=== PATIENT | male | born 1945 ===

== ENCOUNTER 2020-06-27 05:56 | Emergency (ER) | payer OTHER ==
--- OUTSIDE RECORDS SUMMARY | 2020-06-27 05:58 | XMS REPORT | Clinical Summary ---
:[address] [facility] Address [address] [place] [address] Care Team Providers Name Role Phone Pcp, No Primary Care Provider Unavailable Allergies Active Allergy Reactions Severity Noted Date Comments Morphine 01/04/2017 Medications Medication Sig Dispensed Refills Start Date End Date Status metoprolol Take 25 mg 0 Active (LOPRESSOR) 50 MG by mouth 2 tablet (two) times daily Take one-half tablet. doxazosin (CARDURA) 8 Take 8 mg by 0 Active MG tablet mouth nightly. mag/aluminum/sod Take by 0 Act amadou bicarb/alginc mouth. (GAVISCON ORAL) calcium carbonate Take by 0 Ac tive (TUMS ORAL) mouth. aspirin 81 MG EC Take 81 mg 0 Ac tive tablet by mouth daily. cholecalciferol, Take 5,000 0 Ac tive vitamin D3, 5,000 Units by unit Tab mouth daily. folic acid/vit B Take by 0 Act amadou complex and C mouth daily. (DIALYVITE ORAL) clopidogrel (PLAVIX) Take 1 90 tablet 0 08/29/2019 08/28/20 20 Active 75 mg tablet tablet (75 mg total) by mouth daily. atorvastatin Take 1 90 tablet 0 08/29/2019 08/28/2020 Activ e (LIPITOR) 40 MG tablet (40 tablet mg total) by mouth daily. losartan (COZAAR) 100 Take 100 mg 0 2018 Discontinued MG tablet by mouth daily. FA-vit Take 1 0 08/28/2019 Discontin ued Bcomp&G-cffochmw-lorr tablet by (FOLIC ACID-VITAMIN B mouth daily. COMPLEX-VITAMIN A-XZYTVWOC-YRIH) 3-70-15 mg-mcg-mg Tab clopidogrel (PLAVIX) Take 75 mg 0 08/28/20 19 Discontinued 75 mg tablet by mouth daily. cyanocobalamin 1000 Take 1,000 0 9 Discontinued MCG tablet mcg by mouth daily. isosorbide dinitrate Take 30 mg 0 08/29/20 19 Discontinued (ISORDIL) 30 MG by mouth tablet daily . amLODIPine (NORVASC) Take 5 mg by 0 2018 Discontinued 5 MG tablet mouth daily. Active Problems Problem Noted Date Hypertension 08/29/2019 S/P CABG x 3 08/29/2019 HLD (hyperlipidemia) 08/29/2019 Hx of gastric bypass 08/29/2019 Chronic combined systolic and diastolic CHF, NYHA clas s 2 and TAINA/AHA 08/29/2019 stage C Unstable angina 08/29/2019 Coronary atherosclerosis of [place] coronary artery ESRD (end stage renal disease) on dialysis 05/10/2016 Overview: due to FSGS, on MWF, left AVF, misses on Tue due to costs Encounters Date Type Specialty Care Team Description 08/28/2019 Surgery Evan Kumar CATH / GOEL RY Suhas Jenkins, ANGIOS / PTCA 08/28/2019 - Hospital Encounter Cardiology José Atheroscl erosis of 08/29/2019 Suhas Jenkins [place] coronary artery of [place] heart with stable angina p ectoris (HCC) (Primary Dx) 08/28/2019 Orders Only General Internal Medicine after 06/27/2019 Family History Medical History Relation Name Comments Hypertension Brother Diabetes Father Diabetes Mother Kidney disease Other brother and sist er, sister with trasnplant Hypertension Sister Relation Name Status Comments Brother Father Mother Other Sister Social History Tobacco Use Types Packs/Day Years Used Date Never Smoker Smokeless Tobacco: Former User Chew Alcohol Use Drinks/Week oz/Week Comments No Sex Assigned at Date Recorded Not on file Job Start Date Occupation Industry Not on file Not on file Not on file Travel History Travel Start Travel End No recent travel history available. Last Filed Vital Signs Vital Sign Reading Time Taken Blood Pressure 149/83 08/29/2019 6:00 AM AB [employer]EL[employer] Pulse 78 08/29/2019 6:00 AM AB [employer]EL[employer] Temperature 36.5 C (97.7 F) 08/29/2019 3:30 AM AB [employer]ELOPER Respiratory Rate 18 08/29/2019 6:00 AM AB [employer] E[employer] DEVELOPER Oxygen Saturation 92% 08/29/2019 3:30 AM AB [employer]ITIO ETL DEVELOPER Inhaled Oxygen Concentration - - Weight 67.6 kg (149 lb) 08/28/2019 9:24 AM AB [employer]EL[employer] Height 165.1 cm (5' 5") 08/28/2019 9:24 AM AB [employer] DEVELOPER Body Mass Index 24.79 08/28/2019 9:24 AM AB [employer] DEVELOPER Plan of Treatment Not on file Implants Implanted Type Area Cost Analyst Device Identifier Shelf Model / Expiration Serial / Date Lot Stent Synergy Otw [id number] - [id number] [employer] [id number] 05/08/2021 [id number] / Implanted: Qty: 1 on 08/28/2019 by Suhas Kumar MD SCI:INTERV / CARDIOLOGY [id number] Stent [employer] Otw [id number] - [id number] [employer] [id number] 04/22/2021 [id number] / Implanted: Qty: 1 on 08/28/2019 by Suhas Kumar MD SCI:INTERV / CARDIOLOGY [id number] Procedures Procedure Name Priority Date/Time Associated Diagnosis Comme nts VASCULAR DIAGRAM 09/05/2019 3:30 PM -SCAN [employer]ELOPER VASCULAR DIAGRAM 09/05/2019 3:30 PM -SCAN AB [employer] DEVELOPER RHYTHM STRIP - SCAN 08/31/2019 8:00 AM AB [employer] E[employer] DEVELOPER REPORT OF PROCEDURE 08/31/2019 8:00 AM - ENDOSCOPY SCAN AB [employer] DEVELOPER CARDIAC CATH REPORT 08/31/2019 8:00 AM - SCAN AB [employer] DEVELOPER CBC (HEMOGRAM ONLY) Routine 08/29/2019 5:55 AM R esults for this AB [employer] DEVELOPER procedure are i n the results section. POCT-ACT Routine 08/29/2019 12:47 AM Results for this AB [employer]ELOPER procedure are i n the results section. POCT-ACT Routine 08/28/2019 11:07 PM Results for this AB [employer] DEVELOPER procedure are i n the results section. POCT-ACT Routine 08/28/2019 9:53 PM Results for this AB [employer]ELOPER procedure are i n the results section. POCT-ACT Routine 08/28/2019 6:00 PM Results for this AB [employer] DEVELOPER procedure are i n the results section. POCT-ACT Routine 08/28/2019 4:07 PM Results for this AB [employer]EL[employer] procedure are i n the results section. ECG 12-LEAD Routine 08/28/2019 2:20 PM Results for this AB [employer]EL[employer] procedure are i n the results section. ECG 12-LEAD Routine 08/28/2019 2:20 PM AB [employer]IO E[employer] DEVELOPER Procedure Note - Interface, External Ris In - 08/28/2019 1:23 PM AB [employer] DEVELOPER Ventricular Rate 75 BPM Atrial Rate 75 BPM P-R Interval 176 ms QRS Duration 152 ms Q-T Interval 442 ms QTC Calculation(Bazett) 493 ms P [place] 87 degrees R [place] -81 degrees T [place] -3 degrees Normal sinus rhythm Left axis deviation Right bundle branch block Abnormal ECG No previous ECGs available L CATH / CORONARY 08/28/2019 1:27 PM Disease of ANGIOS / PTCA AB [employer] DEVELOPER cardiovascular system POCT-ACT Routine 08/28/2019 12:39 PM Results for this AB [employer] DEVELOPER procedure are i n the results section. POCT-ACT Routine 08/28/2019 12:13 PM Results for this AB [employer]ELOPER procedure are i n the results section. POTASSIUM STAT 08/28/2019 10:02 AM Results for this AB [employer] DEVELOPER procedure are i n the results section. after 06/27/2019 Results VASCULAR DIAGRAM -SCAN (09/05/2019 3:30 PM AB [employer] E[employer] DEVELOPER)Only the most recent of2 results within the time period is included. Narrative Performed At This result has an attachment that is no t available. RHYTHM STRIP - SCAN (08/31/2019 8:00 AM AB [employer]IO ETL DEVELOPER) Narrative Performed At This result has an attachment that is no t available. EKG-SCANNED (08/31/2019 8:00 AM AB [employer]ITIO ETL DEVELOPER) Narrative Performed At This result has an attachment that is no t available. CARDIAC CATH REPORT - SCAN (08/31/2019 8:00 AM AB INITIO ETL DEVELOPER) Narrative Performed At This result has an attachment that is no t available. CBC (Hemogram only) (08/29/2019 5:55 AM AB INITIO ETL DEVELOPER) WBC 5.6 3.5 - 10.5 K/L [facility] RBC 3.74 (L) 4.63 - 6.08 M/L [facility] Hemoglobin 11.2 (L) 13.7 - 17.5 GM/DL [facility] Hematocrit 35.2 (L) 40.1 - 51.0 % [facility] MCV 94.1 (H) 79.0 - 92.2 fL [facility] MCH 29.9 25.7 - 32.2 pg [facility] MCHC 31.8 (L) 32.3 - 36.5 GM/DL [facility] RDW 15.1 (H) 11.6 - 14.4 % [facility] Platelets 123 (L) 150 - 450 K/CU MM [facility] MPV 11.5 9.4 - 12.4 fL [facility] nRBC 0 0 - 0 /100 WBC [facility] Specimen Blood Performing Organization Address City/[facility]/Zipcode Phone Number [address] [address] POST POC ACTIVATED CLOTTING TIME (08/29/2019 12:47 AM AB INITIO ETL DEVELOPER)Only the most recent of7 resultswithin the time period is included. Activated Clotting Time 169Comment: Reference sec [facility] Range: 74-137 seconds, [facility]ENTER Baseline/TESTED AT [address] [address] Specimen Blood Performing Organization Address City/[facility] Phone Number [address] [address] POST ECG 12 lead (08/28/2019 2:20 PM AB [employer] E[employer] DEVELOPER) Specimen Narrative Performed At Ventricular Rate 75 BPM GE MUSE Atrial Rate 75 BPM P-R Interval 176 ms QRS Duration 152 ms Q-T Interval 442 ms QTC Calculation(Bazett) 493 ms P [place] 87 degrees R [place] -81 degrees T [place] -3 degrees Normal sinus rhythm Left anterior fascicular block Right bundle branch block Abnormal ECG No previous ECGs available Confirmed by Sowmya MCKEON MICHAEL ([id number]) on 08/29/20 7:13:41 AM Procedure Note Interface, External Ris In - 08/29/2019 7:13 AM AB [employer]IO E[employer] DEVELOPER Ventricular Rate 75 BPM Atrial Rate 75 BPM P-R Interval 176 ms QRS Duration 152 ms Q-T Interval 442 ms QTC Calculation(Bazett) 493 ms P [place] 87 degrees R [place] -81 degrees T [place] -3 degrees Normal sinus rhythm Left anterior fascicular block Right bundle branch block Abnormal ECG No previous ECGs available Confirmed by Sowmya MCKEON MICHAEL ([id number]) on 08/29/2019 7:13:41 AM Performing Organization Address City/State/Zipcode Phone Number [facility] Potassium (08/28/2019 10:02 AM AB INITIO ETL DEVELOPER) Potassium 3.4 (L) 3.5 - 5.1 meq/L [facility] Specimen Blood Performing Organization Address City/State/Zipcode Phone Number [facility] [address] [place] [address] CENTER after 06/27/2019 Insurance Payer Benefit Plan / Group Subscriber ID Type Phone A ddress MEDICARE MEDICARE A B xxxxxxxxxxx Medicare Advance Directives For more information, please contact:[address] [phone] Code Status Date Activated Date Inactivated Comments Full Code 08/28/2019 1:03 PM 08/29/2019 10:55 AM This code status was determined by: Patient Full Code 08/28/2019 9:36 AM 08/28/2019 1:03 PM This code status was determined by: Patient
--- OUTSIDE RECORDS SUMMARY | 2020-06-27 05:58 | XMS REPORT | Continuity of Care Document ---
:1945 Author Organization [facility] t Address [address] [place] [address] Care Team Providers Name Role Phone Pcp, No Primary Care Physician Unavailable Suhas Kumar MD Attending Clinician [phone] MYLES KUMAR Attending Clinician Unavailable MYLES KUMAR Admitting Clinician Unavailable Payers Payer Name Policy Policy Number Effective Expiration Source Type Date Date MEDICAREMEDICARE A xxxxxxxxxxx [facility] Problems Condition Condition Condition Status Onset Resolution Last Treating Co mments Source Name Details Category Date Date Treatment Clinician Date Hypertensi Hypertensi Disease Active 2018-[address] [facility] 10-29 [facility] S/P CABG x S/P CABG x Disease Active 2018-[address] 3 3 10-29 [facility] HLD HLD Disease Active 2018-[address] (hyperlipi (hyperlipi 10-29 Leslie kes - demia) demia) 00:00: Medical 00 [facility] Hx of Hx of Disease Active 2018-[address] gastric gastric 10-29 [facility] - bypass bypass 00:00: Medical 00 [facility] Chronic Chronic Disease Active 2018-[address] combined combined 10-29 [facility] - systolic systolic 00:00: Medica l and and 00 Center diastolic diastolic CHF, NYHA CHF, NYHA class 2 class 2 and and TAINA/AHA TAINA/AHA stage C stage C Unstable Unstable Disease Active 2018-10 [facility] angina angina 10[facility]29 [facility] 00 [facility] Coronary Coronary Disease Active 2018-10 [facility] atheroscle atheroscle 10-28 Leslie kes - rosis of rosis of 00:00: [place] coronary coronary artery artery ESRD (end ESRD (end Disease Active Overview: [facility] stage stage 8-01 due to [facility] - renal renal 00:00: FSGS, on Medical disease) disease) 00 MWF, left Shima ter on on AVF, dialysis dialysis misses on Wed due to costs Allergies, Adverse Reactions, Alerts Allergy Allergy Status Severity Reaction(s) Onset Inactive Treating Comm ents Source Name Type Date Date Clinician Morphine Drug Active [facility] Intolera 3-28 [facility] nce 00:[facility]: Medical 00 Center Family History Family Member Diagnosis Comments Start Date Stop Date Source Natural brother Hypertension [facility] Natural father Diabetes [facility] Natural mother Diabetes [facility] Other Kidney disease [facility] Natural sister Hypertension [facility] Social History Social Habit Start Date Stop Date Quantity Comments Source History of tobacco Chews Tobacco [facility] Sex Assigned At [facility] Smoking Status Start Date Stop Date Source Never smoker [facility] Medications Ordered Filled Start Stop Current Ordering Indication Dosage Frequency Signature Comments Components Source Medication Medication Date Date Medication? Clinician (SIG) Name Name isosorbide 2018-10- No 30mg QD Take [address] dinitrate 10-29 by mouth [facility] - (ISORDIL) 07:21: 00:00 daily . Medi brandt 30 MG 37 :00 [facility] tablet clopidogrel 2018-10- No 75mg QD Take [address] (PLAVIX) 75 10-29 tablet (75 L ukes - mg tablet 00:00: 23:59 mg total) Me dical 00 :00 by mouth Center daily. atorvastati 2018-10- No 40mg QD Take [address] n (LIPITOR) 10-29- tablet (40 L ukes - 40 MG 00:00: 23:59 mg total) Medica l tablet 00 :00 by mouth Center daily. amLODIPine 2018-10- No 5mg QD Take [address] (NORVASC) 5 10-28 by mouth Johanna es - MG tablet 09:48: 00:00 daily. Medic al 35 :00 Center clopidogrel 2018-10- No 75mg QD Take [address] (PLAVIX) 75 -28 08-19 by mouth Johanna es - mg tablet 09:48: 00:00 daily. Medic al 25 :00 [facility] cyanocobala 2018-10- No 1000ug QD Take 1,[address] min 1000 -19 11-19 mcg by [facility] - MCG tablet 09:48: 00:00 mouth Medic al 20 :00 daily. [facility] FA-vit 2018-10 2019- No 1{tbl} QD Take [address] Bcomp&C-jacinto -28 08- tablet by Leslie kes - enium-zinc 09:48: 00:00 mouth Medic al (FOLIC 14 :00 daily. [facility] ACID-VITAMI N B COMPLEX-VIT KUHN C-SELENIUM- ZINC) 3-70-15 mg-mcg-mg Tab losartan 2018-10- No 100mg QD Take [address] (COZAAR) - 11-19 mg by [facility] - 100 MG 09:48: 00:00 mouth Medical tablet 07 :00 daily. [facility] metoprolol 2018-10 Yes 25mg Q.5D Take [address] (LOPRESSOR) -19 by mouth 2 Leslie kes - 50 MG 09:47: (two) Medical tablet 36 times Center daily Take one-half tablet. mag/aluminu 2018-10 Yes Take by [facility] m/sod - mouth. [facility] - bicarb/algi 09:47: Medica l az 36 [facility] (GAVISCON ORAL) calcium 2018-10 Yes Take by [facility] carbonate -19 mouth. [facility] - (TUMS ORAL) 09:47: Medica l 36 [facility] aspirin 81 2018-10 Yes 81mg QD Take [address] MG EC 19 by mouth [facility] - tablet 09:47: daily. Medical [address] [place] [address] cholecalcif 2018-10 Yes 5000U QD Take 5,[address] stephany, 1-19 Units by [facility] - vitamin D3, 09:47: mouth Medic al 5,000 unit 36 daily. [facility] Tab folic 2018-10 Yes QD Take by [facility] acid/vit B 1-19 mouth [facility] - complex and 09:47: daily. Medi brandt C 36 [facility] (DIALYVITE ORAL) doxazosin Yes 8mg QD Take [address] (CARDURA) 8 3-28 by mouth Luke s - MG tablet 13:55: nightly. [address] Vital Signs Vital Name Observation Time Observation Value Comments Source Systolic blood 2019-08-29 06:00:00 149 mm[Hg] [facility] Diastolic blood 2019-08-29 06:00:00 83 mm[Hg] [facility] Heart rate 2019-08-29 06:00:00 78 /min [facility] Respiratory rate 2019-08-29 06:00:00 18 /min [facility] Body temperature 2019-08-29 03:30:00 36.5 Lorena [facility] Oxygen saturation in 2019-08-29 03:30:00 92 /min [facility] Arterial blood by Medical Ce nter Pulse oximetry Body height 2019-08-28 09:24:00 165.1 cm [facility] Body weight Measured 2019-08-28 09:24:00 67.586 kg [facility] BMI 2019-08-28 09:24:00 24.79 kg/m2 [facility] Procedures Procedure Date / Time Performed Performing Clinician Mariposa coyle VASCULAR DIAGRAM -SCAN 2019-09-05 15:30:42 Provider, [facility] VASCULAR DIAGRAM -SCAN 2019-09-05 15:30:41 Provider, [facility] RHYTHM STRIP - SCAN 2019-08-31 08:00:47 Provider, [facility] REPORT OF PROCEDURE - 2019-08-31 08:00:45 Provider, [facility] CARDIAC CATH REPORT - 2019-08-31 08:00:43 Provider, [facility] CBC (HEMOGRAM ONLY) 2019-08-29 05:55:00 Talita Soler [facility] POCT-ACT 2019-08-29 00:47:00 Suhas Kumar [facility] POCT-ACT 2019-08-28 23:07:00 Suhas Kumar [facility] POCT-ACT 2019-08-28 21:53:00 Suhas Kumar [facility] POCT-ACT 2019-08-28 18:00:00 Suhas Kumar [facility] POCT-ACT 2019-08-28 16:07:00 Suhas Kumar [facility] ECG 12-LEAD 2019-08-28 14:20:30 Suhas Kumar [facility] L CATH / CORONARY 2019-08-28 13:27:[address] [facility] - ANGIOS / PTCA [facility] POCT-ACT 2019-08-28 12:39:00 Suhas [facility] 2019-08-28 12:13:00 Suhas Kumar [facility] POTASSIUM 2019-08-28 10:02:00 Suhas Kumar fredrick [facility] Results Test Description Test Time Test Comments Results Result Sourc e Comments ECG 12 lead 2019-08-11 Interface, External Ris [facility] 0 In - 08/29/2019 7:13 Johanna es - 07:13:46 AM CSTVentricular Rate Me dical 75 BPMAtrial Rate 75 Cent er BPMP-R Interval 176 msQRS Duration 152 msQ-T Interval 442 msQTC Calculation(Bazett) 493 msP [place] 87 degreesR [place] -81 degreesT [place] -3 degreesNormal sinus rhythmLeft anterior fascicular blockRight bundle branch blockAbnormal ECGNo previous ECGs availableConfirmed by Sowmya MCKEON MICHAEL ([id number]) on 08/29/2019 7:13:41 AM CBC (Hemogram only) 2019-08-29 06:27:00 Test Item Value Reference Range Interpretation Comme nts WBC (test code = 6690-2) 5.6 3.5- 10.5 K/L RBC (test code = 789-8) 3.74 4.63- 6.08 M/L L MCHC (test code = 786-4) 31.8 32.3- 36.5 GM/DL L Hematocrit (test code = 4544-3) 35.2 % 40.1-51 L MCV (test code = 787-2) 94.1 fL 79-92.2 H MCH (test code = 785-6) 29.9 pg 25.7-32.2 RDW (test code = 788-0) 15.1 % 11.6-14.4 H Platelets (test code = 777-3) 123 150- 450 K/CU MM L MPV (test code = 09487-9) 11.5 fL 9.4-12.4 nRBC (test code = 413) 0 0- 0 /100 WBC Lab Interpretation (test code = 02652-9) Abnormal [facility] (HEMOGRAM ONLY)2019-08-29 06:27:00 Test Item Value Reference Range Interpretation Comments WHITE BLOOD CELL COUNT (BEAKER) 5.6 K/ L 3.5-10.5 (test code = 775) RED BLOOD CELL COUNT (BEAKER) 3.74 M/ L 4.63-6.08 L (test code = 761) HEMOGLOBIN (BEAKER) (test code = 11.2 GM/DL 13.7-17.5 L 410) HEMATOCRIT (BEAKER) (test code = 35.2 % 40.1-51.0 L 411) MEAN CORPUSCULAR VOLUME (BEAKER) 94.1 fL 79.0-92.2 H (test code = 753) MEAN CORPUSCULAR HEMOGLOBIN 29.9 pg 25.7-32.2 (BEAKER) (test code = 751) MEAN CORPUSCULAR HEMOGLOBIN CONC 31.8 GM/DL 32.3-36.5 L (BEAKER) (test code = 752) RED CELL DISTRIBUTION WIDTH 15.1 % 11.6-14.4 H (BEAKER) (test code = 412) PLATELET COUNT (BEAKER) (test 123 K/CU MM 150-450 L code = 756) MEAN PLATELET VOLUME (BEAKER) 11.5 fL 9.4-12.4 (test code = 754) NUCLEATED RED BLOOD CELLS 0 /100 WBC 0-0 (BEAKER) (test code = 413) POC ACTIVATED CLOTTING [id number] 02:58:00 Test Item Value Reference Range Interpretation Comments Activated Clotting Time 169 sec Refe rence Range: 74-137 (test code = 441) seconds, B aseline/TESTED AT [place] [address] [address] [facility] [address] [id number] 02:58:00 Test Item Value Reference Range Interpretation Comments ACTIVATED CLOTTING TIME 169 sec Refe rence Range: (BEAKER) (test code = 74-137 seconds, 441) Baseline/TESTED AT [address] [address] [id number] 23:55:00 Test Item Value Reference Range Interpretation Comments ACTIVATED CLOTTING TIME 180 sec Refe rence Range: (BEAKER) (test code = 74-137 seconds, 441) Baseline/TESTED AT [address] [address] [id number] 23:16:00 Test Item Value Reference Range Interpretation Comments ACTIVATED CLOTTING TIME 169 sec Refe rence Range: (BEAKER) (test code = 74-137 seconds, 441) Baseline/TESTED AT [address] [address] [id number] 23:16:00 Test Item Value Reference Range Interpretation Comments ACTIVATED CLOTTING TIME 164 sec Refe rence Range: (BEAKER) (test code = 74-137 seconds, 441) Baseline/TESTED AT [address] [address] [id number] 16:24:00 Test Item Value Reference Range Interpretation Comments ACTIVATED CLOTTING TIME 208 sec Refe rence Range: (BEAKER) (test code = 74-137 seconds, 441) Baseline/TESTED AT [address] [address] [id number] 13:02:00 Test Item Value Reference Range Interpretation Comments ACTIVATED CLOTTING TIME 268 sec Refe rence Range: (BEAKER) (test code = 74-137 seconds, 441) Baseline/TESTED AT [address] [address] [id number] 13:02:00 Test Item Value Reference Range Interpretation Comments ACTIVATED CLOTTING TIME 373 sec Refe rence Range: (BEAKER) (test code = 74-137 seconds, 441) Baseline/TESTED AT [address] [address] [id number] 10:30:00 Test Item Value Reference Range Interpretation Comments Potassium (test code = 2823-3) 3.4 meq/L 3.5-5.1 L Lab Interpretation (test code = Abnormal 16992-0) [facility] 10:30:00 Test Item Value Reference Range Interpretation Comments POTASSIUM (BEAKER) (test code = 3.4 meq/L 3.5-5.1 L 379)
[2020-06-27 06:51] LABS: Absolute Lymphocytes (CBC) 0.3 K/uL (0.7-4.9); Hematocrit 29.7 % (39.6-49.0); Lymphocytes % 3.5 % (15.3-44.8); RBC Red Blood Cell Count 3.18 M/uL (4.33-5.43)
--- NOTE | 2020-06-27 07:08 | RAD REPORT ---
EXAM DESCRIPTION: CT - [id number] - 06/27/2020 6:56 am CLINICAL HISTORY: PAIN, fall, head and neck injury, head and neck pain, posterior scalp hematoma COMPARISON: <Comparisons> TECHNIQUE: Axial 5 mm thick images of the head were obtained. Axial 2 mm thick images of the cervic al spine were obtained with sagittal and coronal reconstruction images generated and reviewed. All CT scans are performed using dose optimization technique as appropriate and may include automated exposure control or mA/KV adjustment according to patient size. FINDINGS: No intracranial hemorrhage, mass, edema or acute intracranial finding. No acute cortical b ased infarction identified. Patient has mild to moderate severity bifrontal lobe atrophy. Atrophy gio nges elsewhere are minimal. Ventricles are in proportion to any volume loss. No extra-axial fluid col lections. Mastoid air cells and paranasal sinuses are clear. No globe or orbit abnormality seen. Elke rial and physiologic calcifications are present. A 4 centimeter posterior occipital scalp hematoma is present. Underlying bone is intact. Cervical bodies are normal in height. There is reversal of the usual cervical lordosis with the apex at C5. Slight retro is lists the cysts of C5 on C6 and C6 on C7. Both of these levels show significan t loss in disc height along with endplate spurring and uncovertebral joint hypertrophy. No fracture o r acute bony abnormality. Advanced facet joint degenerative change present on the left at C2-3. C5-6 and C6-7 bilateral foraminal encroachment present. Central canal detail is inherently limited. No paraspinal mass or hematoma. Dense carotid calcifications are present. Right apex pleural thickeni ng changes are present. IMPRESSION: Atrophy changes are present as detailed. No hemorrhage, edema or acute intracranial find ing. Cervical spine degenerative change present as detailed. No fracture or acute finding seen.
[2020-06-27 07:16] LABS: Potassium 4.3 mmol/L (3.5-5.1)
--- NOTE | 2020-06-27 07:33 | ER ---
Nurse's Notes [facility] Name: Tam Julio Age: 74 yrs Sex: Male : 1945 Arrival Date: 06/27/2020 Time: 05:56 Bed 6 Private MD: Diagnosis: Fall on same level from slipping, tripping and stumbling;Superficial injury of head-hematoma;Cellulitis of right lower limb Presentation: 06/27 06:00 Chief complaint: EMS states: patient tripped and fell down on the way to dialysis rr5 center hit the back of his head sustained like golf ball swelling on the back of his head. on blood thinner negative for LOC. 06:00 Coronavirus screen: Client denies travel out of the [place] in the last 14 days. At this rr5 time, the client does not indicate any symptoms associated with coronavirus-19. Ebola Screen: Patient negative for fever greater than or equal to 101.5 degrees Fahrenheit, and additional compatible Ebola Virus Disease symptoms Patient denies exposure to infectious person. Patient denies travel to an Ebola-affected area in the 21 days before illness onset. Initial Sepsis Screen: Does the patient meet any 2 criteria? No. Patient's initial sepsis screen is negative. Does the patient have a suspected source of infection? No. Patient's initial sepsis screen is negative. Risk Assessment: Do you want to hurt yourself or someone else? Patient reports no desire to harm self or others. Onset of symptoms was June 27, 2020. 06:00 Method Of Arrival: EMS: [facility] rr5 06:00 Acuity: ROBERT 2 rr5 06:00 Care prior to arrival: None. Mechanism of Injury: Fall from standing position. Trauma rr5 event details: Injury occurred in the [facility], Injury occurred: dialysis center Injury occurred: June 27, 2020. Trauma Activation: Alert Physician: ED Physician; Name: / carolyn STRAUSS; Notified At: 06:00; Arrived At: 06:05 Physician: General Surgeon; Name: ; Notified At: 06:00; Arrived At: Physician: Radiology; Name: isaura; Notified At: 06:00; Arrived At: 06:05 Physician: Respiratory; Name: ; Notified At: 06:00; Arrived At: Physician: Lab; Name: ; Notified At: 06:00; Arrived At: Historical: - Allergies: 06:08 No Known Allergies; rr5 - Home Meds: 06:25 DIALYVITE 800 0.8 mg oral tab [Active]; cyanocobalamin (vitamin B-12) 1,000 mcg oral rr5 tab [Active]; clopidogrel 75 mg oral tab 1 tab once daily [Active]; nitroglycerin 0.4 mg SL subl 1 tab [Active]; Tums 200 mg calcium (500 mg) oral chew [Active]; tramadol 50 mg Oral tab [Active]; amiodarone 200 mg Oral tab [Active]; omeprazole 20 mg oral TbEC [Active]; Symbicort inhalation inhalation [Active]; Vitamin D 2000mg Oral [Active]; metoprolol tartrate 25 mg Oral tab [Active]; Eliquis 2.5 mg oral tab 1 tab 2 times per day [Active]; isosorbide mononitrate 60 mg Oral Tb24 [Active]; furosemide 80 mg Oral tab 1 tab 2 times per day [Active]; - PMHx: 06:08 ESRD; rr5 06:19 Anemia; Atrial Fib; Chronic pain; CHF; coronary atherosclerosis; Dementia; GERD; Gout; rr5 Hypertension; monoclonal gammopathy; pleural effusion; renal osteodystrophy; hyperparathyroidism; Diabetes - IDDM; vitamin b12 deficiency; dialysis schedule M and F; - PSHx: 06:08 Heart stents; Appendectomy; Cholecystectomy; CABG; Knee surgery; elbow surgery; Hernia rr5 repair; AV fistula left arm; 06:25 stomach bypass; rr5 - Immunization history:: Adult Immunizations unknown, Flu vaccine is not up to date. - Social history:: Smoking status: unknown Patient/guardian denies using alcohol, street drugs. - Immunization history: Last tetanus immunization: unknown. Screenin:10 Abuse screen: Denies threats or abuse. Denies injuries from another. Nutritional rr5 screening: No deficits noted. Tuberculosis screening: No symptoms or risk factors identified. Fall risk At risk due to injury, age, immobility, Intervention for positive screen: ED Physician notified, instructed to call for assist when getting up, side rails up. 06:15 Fall Risk IV access (20 points). Ambulatory Aid- Crutches/Cane/Walker (15 pts). Gait- rr5 Impaired (20 pts.). Total Ignacio Fall Scale indicates High Risk Score (45 or more points). Fall prevention measures have been instituted. Side Rails Up X 2 Frequent Obs/Assessments Occuring As available patient and family educated on Fall Prevention Program and Strategies. Primary Survey: 06:00 NO uncontrolled hemorrhage observed. A: The patient is alert. Airway: patent, Oxygen rr5 via nasal cannula at 2 liters per minute. Oral cavity: clear, gag reflex present. Breathing/Chest: Respiratory pattern: regular, Respiratory effort: spontaneous, unlabored, Breath sounds: clear, bilaterally. Chest inspection: symmetrical rise and fall of the chest. 06:00 Circulation: Heart tones present. Pulses: palpable right radial artery, right dorsalis rr5 pedis artery, left radial artery and left dorsalis pedis artery. Skin color: pink, Skin temperature: warm, dry. Disability Alert. Exposure/Environment: There is no evidence of uncontrolled external bleeding. Obvious injury(ies) are noted at this time: golf ball size back of the head abrasion left elbow A warming method has been applied: A warm blanket has been provided to the patient. 06:37 Reassessment Airway Airway Patent Breathing/Chest Respiratory pattern Regular rr5 Respiratory effort Spontaneous Unlabored Breath sounds Clear Chest inspection Symmetrical Circulation Heart tones Present Pulses Palpable Color [place] Disability Alert. Secondary Survey: 06:10 HEENT: Head Other golf ball size back of the head Face No injury/deformity Eyes: No rr5 injury or deformity noted. Ears: clear bilaterally. Nose: clear to bilateral nares. Throat: is clear. Gastrointestinal: Abdomen is soft. : No signs and/or symptoms were reported regarding the genitourinary system. Musculoskeletal: Capillary refill < 3 seconds. Assessment: 06:11 General: Appears in no apparent distress. comfortable, Behavior is calm, cooperative, rr5 appropriate for age, cold compress applied. Pain: Complains of pain in occipital area Pain currently is 6 out of 10 on a pain scale. Quality of pain is described as aching, Pain began suddenly, Is intermittent. Neuro: Level of Consciousness is awake, alert, obeys commands, Oriented to person, place, time, situation. Cardiovascular: Capillary refill < 3 seconds Patient's skin is warm and dry. Edema is 2+ to left ankle and right ankle. Respiratory: Airway is patent Respiratory effort is even, unlabored, Respiratory pattern is regular, symmetrical. GI: No signs and/or symptoms were reported involving the gastrointestinal system. : No signs and/or symptoms were reported regarding the genitourinary system. EENT: No signs and/or symptoms were reported regarding the EENT system. Derm: Skin is intact, Skin is red, right lower leg Skin temperature is warm. Musculoskeletal: Capillary refill < 3 seconds. 06:43 Reassessment: Patient appears in no apparent distress at this time. send to CT rr5 [address] staff. 07:00 Reassessment: RECD REPORT FROM MARC STEPHENS. 74YO HM P/W MECHANICAL FALL WITHOUT LOC. RAD bp RESULTS PENDING. 07:45 Reassessment: D/C ON HOLD FOR MEAL TRAY. PER DIALYSIS CLINIC, PT CHAIR TIME IS 1115. bp 08:16 Reassessment: BREAKFAST TRAY AT B/S. bp 09:16 Reassessment: PT D/C HOME VIA W/C WITH FAMILY. bp Vital Signs: 06:00 BP 156 / 84; Pulse 66; Resp 18; Temp 97.7; Pulse Ox 97% ; Weight 63.5 kg; Height 5 ft. rr5 5 in. (165.10 cm); Pain 6/10; 06:30 BP 188 / 80; Pulse 70; Resp 16; Pulse Ox 100% on R/A; rr5 07:00 BP 190 / 75; Pulse 62; Resp 16; Pulse Ox 97% ; bp 06:00 Body Mass Index 23.30 (63.50 kg, 165.10 cm) rr5 [place] Coma Score: 06:13 Eye Response: spontaneous(4). Verbal Response: oriented(5). Motor Response: obeys rr5 commands(6). Total: 15. 06:30 Eye Response: spontaneous(4). Verbal Response: oriented(5). Motor Response: obeys rr5 commands(6). Total: 15. Trauma Score (Adult): 06:13 Eye Response: spontaneous(1); Verbal Response: oriented(1); Motor Response: obeys rr5 commands(2); Systolic BP: > 89 mm Hg(4); Respiratory Rate: 10 to 29 per min(4); [place] Score: 15; Trauma Score: 12 06:30 Eye Response: spontaneous(1); Verbal Response: oriented(1); Motor Response: obeys rr5 commands(2); Systolic BP: > 89 mm Hg(4); Respiratory Rate: 10 to 29 per min(4); [place] Score: 15; Trauma Score: 12 ED Course: 05:56 Patient arrived in ED. cl3 06:00 Carolyn Rucker FNP-C [facility]. kb 06:00 Mani Gonzalez MD is Attending Physician. kb 06:00 Patient maintains SpO2 saturation greater than 95% on room air. Thermoregulation: warm rr5 blanket given to patient. 06:02 Marc Larkin, ANGELO is Primary Nurse. rr5 06:05 Triage completed. rr5 06:05 Wound care: to located on occipital area ice pack applied. Patient tolerated well. rr5 06:08 Arm band placed on right wrist. rr5 06:11 Patient has correct armband on for positive identification. Bed in low position. Call rr5 light in reach. Side rails up X2. 06:27 Inserted saline lock: 20 gauge in right forearm, using aseptic technique. ,using rr5 aseptic technique. [facility] collected. 06:37 Radiology exam delayed due to Currently with X-Ray. kw1 06:45 Shoulder Right (2 View) XRAY In Process Unspecified. EDMS 06:57 CT Head C Spine In Process Unspecified. EDMS 08:18 No provider procedures requiring assistance completed. IV discontinued, intact, bp bleeding controlled, No redness/swelling at site. Pressure dressing applied. Administered Medications: 07:45 Drug: Bactrim (160 mg-800 mg (DS) 1 tablet Route: PO; bp 09:16 Follow up: Response: No adverse reaction bp 07:45 Drug: KeFLEX 500 mg Route: PO; bp Outcome: 07:32 Discharge ordered by . kb 09:16 Discharged to home via wheelchair, with family. bp 09:16 Condition: stable 09:16 Discharge instructions given to patient, Instructed on discharge instructions, follow up and referral plans. medication usage, Demonstrated understanding of instructions, follow-up care, medications, Prescriptions given X 2. 09:17 Patient left the ED. bp Signatures: Dispatcher [employer] EDTX Carolyn Rucker FNP-C FNP-Ckb Peltier, Brian RN RN bp Sidra Shen kw1 Marc Larkin RN RN rr5 Kandi Kc cl3 Corrections: (The following items were deleted from the chart) 06:21 06:11 Derm: Skin is intact, Skin is red, Skin temperature is warm rr5 rr5
--- NOTE | 2020-06-27 07:33 | EDPHYS ---
Physician Documentation [facility] Name: Tam Julio Age: 74 yrs Sex: Male : 1945 Arrival Date: 06/27/2020 Time: 05:56 Bed 6 Private MD: ED Physician Mani Gonzalez HPI: 06/27 06:33 This 74 yrs old Unknown Male presents to ER via EMS with complaints of Fall Injury. kb 06:33 Details of fall: The patient fell from an upright position, stepping up onto curb. kb Onset: The symptoms/episode began/occurred just prior to arrival. Associated injuries: The patient sustained injury to the head, hematoma. Severity of symptoms: At their worst the symptoms were moderate, in the emergency department the symptoms are unchanged. The patient has experienced similar episodes in the past, a few times. The patient has not recently seen a physician. Pt states he was going to dialysis and when he stepped up on the curb he fell backwards and hit his head. 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 Pt denies LOC. Reports head pain, but denies any other injury or pain. Did not have dialysis this morning, normally goes on Mondays and Fridays. [place]. Historical: - Allergies: 06:08 No Known Allergies; rr5 - Home Meds: 06:25 DIALYVITE 800 0.8 mg oral tab [Active]; cyanocobalamin (vitamin B-12) 1,000 mcg oral rr5 tab [Active]; clopidogrel 75 mg oral tab 1 tab once daily [Active]; nitroglycerin 0.4 mg SL subl 1 tab [Active]; Tums 200 mg calcium (500 mg) oral chew [Active]; tramadol 50 mg Oral tab [Active]; amiodarone 200 mg Oral tab [Active]; omeprazole 20 mg oral TbEC [Active]; Symbicort inhalation inhalation [Active]; Vitamin D 2000mg Oral [Active]; metoprolol tartrate 25 mg Oral tab [Active]; Eliquis 2.5 mg oral tab 1 tab 2 times per day [Active]; isosorbide mononitrate 60 mg Oral Tb24 [Active]; furosemide 80 mg Oral tab 1 tab 2 times per day [Active]; - PMHx: 06:08 ESRD; rr5 06:19 Anemia; Atrial Fib; Chronic pain; CHF; coronary atherosclerosis; Dementia; GERD; Gout; rr5 Hypertension; monoclonal gammopathy; pleural effusion; renal osteodystrophy; hyperparathyroidism; Diabetes - IDDM; vitamin b12 deficiency; dialysis schedule M and F; - PSHx: 06:08 Heart stents; Appendectomy; Cholecystectomy; CABG; Knee surgery; elbow surgery; Hernia rr5 repair; AV fistula left arm; 06:25 stomach bypass; rr5 - Immunization history:: Adult Immunizations unknown, Flu vaccine is not up to date. - Social history:: Smoking status: unknown Patient/guardian denies using alcohol, street drugs. - Immunization history: Last tetanus immunization: unknown. ROS: 06:28 Constitutional: Negative for fever, chills, and weight loss, Eyes: Negative for injury, kb pain, redness, and discharge, Cardiovascular: Negative for chest pain, palpitations, and edema, Respiratory: Negative for shortness of breath, cough, wheezing, and pleuritic chest pain, Abdomen/GI: Negative for abdominal pain, nausea, vomiting, diarrhea, and constipation, Back: Negative for injury and pain, MS/Extremity: Negative for injury and deformity. 06:28 Skin: Positive for hematoma, of the scalp. 06:28 Neuro: Positive for headache. Exam: 06:28 Constitutional: This is a well developed, well nourished patient who is awake, alert, kb and in no acute distress. Eyes: Pupils equal round and reactive to light, extra-ocular motions intact. Lids and lashes normal. Conjunctiva and sclera are non-icteric and not injected. Cornea within normal limits. Periorbital areas with no swelling, redness, or edema. Chest/axilla: Normal chest wall appearance and motion. Nontender with no deformity. No lesions are appreciated. Respiratory: Lungs have equal breath sounds bilaterally, clear to auscultation and percussion. No rales, rhonchi or wheezes noted. No increased work of breathing, no retractions or nasal flaring. Abdomen/GI: Soft, non-tender, with normal bowel sounds. No distension or tympany. No guarding or rebound. No evidence of tenderness throughout. Back: No spinal tenderness. No costovertebral tenderness. Full range of motion. Neuro: Awake and alert, GCS 15, oriented to person, place, time, and situation. Cranial nerves II-XII grossly intact. Motor strength 5/5 in all extremities. Sensory grossly intact. Cerebellar exam normal. Normal gait. 06:28 Head/face: Noted is no obvious of injury or deformity except hematoma, that is moderate, of the back of head. 06:28 Cardiovascular: Edema: 2+ edema to level of left ankle and right ankle. 06:28 Skin: cellulitis, that is mild, that is moderate, on the right lower leg. 06:30 Musculoskeletal/extremity: Extremities: grossly normal except: noted in the anterior kb aspect of right shoulder: pain, noted in the left elbow: abrasion, ROM: limited passive range of motion due to pain, in the anterior aspect of right shoulder, Circulation is intact in all extremities. Sensation intact. Vital Signs: 06:00 BP 156 / 84; Pulse 66; Resp 18; Temp 97.7; Pulse Ox 97% ; Weight 63.5 kg; Height 5 ft. rr5 5 in. (165.10 cm); Pain 6/10; 06:30 BP 188 / 80; Pulse 70; Resp 16; Pulse Ox 100% on R/A; rr5 07:00 BP 190 / 75; Pulse 62; Resp 16; Pulse Ox 97% ; bp 06:00 Body Mass Index 23.30 (63.50 kg, 165.10 cm) rr5 [place] Coma Score: 06:13 Eye Response: spontaneous(4). Verbal Response: oriented(5). Motor Response: obeys rr5 commands(6). Total: 15. 06:30 Eye Response: spontaneous(4). Verbal Response: oriented(5). Motor Response: obeys rr5 commands(6). Total: 15. Trauma Score (Adult): 06:13 Eye Response: spontaneous(1); Verbal Response: oriented(1); Motor Response: obeys rr5 commands(2); Systolic BP: > 89 mm Hg(4); Respiratory Rate: 10 to 29 per min(4); [place] Score: 15; Trauma Score: 12 06:30 Eye Response: spontaneous(1); Verbal Response: oriented(1); Motor Response: obeys rr5 commands(2); Systolic BP: > 89 mm Hg(4); Respiratory Rate: 10 to 29 per min(4); [place] Score: 15; Trauma Score: 12 MDM: 06:00 Patient medically screened. kb 06:28 Data reviewed: vital signs, nurses notes. Data interpreted: Pulse oximetry: on room air kb is 97 %. Interpretation: normal. 06:31 ED course: Pain noted to right shoulder with passive ROM. Pt states "it might hurt more kb from the fall, but it has been hurting for a couple of weeks." When asked about erythema to right lower leg pt states "its been that way for about a week and its been weeping." . 07:30 Counseling: I had a detailed discussion with the patient and/or guardian regarding: the kb historical points, exam findings, and any diagnostic results supporting the discharge/admit diagnosis, lab results, radiology results, the need for outpatient follow up, a family practitioner, to return to the emergency department if symptoms worsen or persist or if there are any questions or concerns that arise at home. 07:48 ED course: I spoke with the dialysis nurse to reschedule pt's dialysis appt. New appt kb time is 11:15 today. Pt informed. 06/27 06:15 Order name: CBC with Diff; Complete Time: 07:20 kb 06/27 06:15 Order name: Basic Metabolic Panel; Complete Time: 07:20 kb 06/27 06:15 Order name: Blood Culture Adult (2) kb 06/27 06:15 Order name: CT Head C Spine; Complete Time: 07:20 kb 06/27 06:15 Order name: Shoulder Right (2 View) XRAY 06/27 06:15 Order name: IV Start; Complete Time: 06:26 kb 06/27 07:41 Order name: Diet Ada 1800 Rosalio; Complete Time: 07:41 em Administered Medications: 07:45 Drug: Bactrim (160 mg-800 mg (DS) 1 tablet Route: PO; bp 09:16 Follow up: Response: No adverse reaction bp 07:45 Drug: KeFLEX 500 mg Route: PO; bp Disposition: 06/27/20 07:32 Discharged to Home. Impression: Fall on same level from slipping, tripping and stumbling, Superficial injury of head - hematoma, Cellulitis of right lower limb. - Condition is Stable. - Discharge Instructions: Hematoma, [id number], Cellulitis, Adult, [id number], Head Injury, Adult, [id number]. - Prescriptions for Keflex 250 mg Oral Capsule - take 1 capsule by ORAL route every 8 hours for 10 days; 30 capsule. Bactrim DS 800- 160 mg Oral Tablet - take 1 tablet by ORAL route every 12 hours for 10 days; 20 tablet. - Medication Reconciliation Form, Thank You Letter, Antibiotic Education, Prescription Opioid Use form. - Follow up: Emergency Department; When: As needed; Reason: Worsening of condition. Follow up: Private Physician; When: 2 - 3 days; Reason: Recheck today's complaints, Continuance of care, Re-evaluation by your physician. Signatures: Dispatcher [employer] EDMS Carolyn Rucker, ELIGIO STRAIGHT TRUCK DRIVER-Braulio Vanegas RN RN Steven Ibarra RN RN rr5 Corrections: (The following items were deleted from the chart) 06:31 06:28 Constitutional: This is a well developed, well nourished patient who is awake, kb alert, and in no acute distress. Eyes: Pupils equal round and reactive to light, extra-ocular motions intact. Lids and lashes normal. Conjunctiva and sclera are non-icteric and not injected. Cornea within normal limits. Periorbital areas with no swelling, redness, or edema. Chest/axilla: Normal chest wall appearance and motion. Nontender with no deformity. No lesions are appreciated. Respiratory: Lungs have equal breath sounds bilaterally, clear to auscultation and percussion. No rales, rhonchi or wheezes noted. No increased work of breathing, no retractions or nasal flaring. Abdomen/GI: Soft, non-tender, with normal bowel sounds. No distension or tympany. No guarding or rebound. No evidence of tenderness throughout. Back: No spinal tenderness. No costovertebral tenderness. Full range of motion. MS/ Extremity: Pulses equal, no cyanosis. Neurovascular intact. Full, normal range of motion. Neuro: Awake and alert, GCS 15, oriented to person, place, time, and situation. Cranial nerves II-XII grossly intact. Motor strength 5/5 in all extremities. Sensory grossly intact. Cerebellar exam normal. Normal gait. kb 06:35 06:30 Musculoskeletal/extremity: Extremities: grossly normal except: noted in the kb anterior aspect of right shoulder: pain, ROM: limited passive range of motion due to pain, in the anterior aspect of right shoulder, Circulation is intact in all extremities. Sensation intact. kb 09:17 07:32 06/27/2020 07:32 Discharged to Home. Impression: Fall on same level from bp slipping, tripping and stumbling; Superficial injury of head - hematoma; Cellulitis of right lower limb. Condition is Stable. Forms are Medication Reconciliation Form, Thank You Letter, Antibiotic Education, Prescription Opioid Use. Follow up: Emergency Department; When: As needed; Reason: Worsening of condition. Follow up: Private Physician; When: 2 - 3 days; Reason: Recheck today's complaints, Continuance of care, Re-evaluation by your physician. kb
[2020-06-27] MEDS ORDERED: SMZ./TMP. 800/160 MG TABLET ONE (08:00)
[2020-06-27] MEDS ORDERED: CEPHALEXIN 250 MG CAP ONE (08:00)
--- NOTE | 2020-06-27 09:39 | RAD REPORT ---
EXAM DESCRIPTION: Shoulder Right 2 View - 06/27/2020 6:45 am CLINICAL HISTORY: PAIN, fall, shoulder pain COMPARISON: No comparisons TECHNIQUE: Internal and external rotation views of the right shoulder were obtained. FINDINGS: There is no fracture or dislocation. AC joint degenerative changes are present. Spurring is seen along the superior margin. Acromial humeral joint space is normal with no abnormal soft tissu e calcifications. Patient has prominent glenohumeral degenerative change with joint space narrowing a nd marginal spurring. Moderate-sized right pleural effusion is seen not fully assessed on this study. IMPRESSION: Prominent degenerative change with no fracture or acute finding identifiable. Scapula is not optimally imaged. The patient has continued pain symptoms suspicious for scapula fract ure, follow-up CT imaging could be performed. Right pleural effusion only partially visualized on this study.
[2020-06-27 17:16] VITALS: TEMP 97.7
[2020-06-27 17:18] VITALS: BP 190/75; O2SAT 97
== END 2020-06-27 09:17 | disposition home or self-care (01) ==
LOC: ER 05:56
DX: S00.93XA Contusion of unspecified part of head, initial encounter (principal); L03.115 Cellulitis of right lower limb; W18.30XA Fall on same level, unspecified, initial encounter; Y93.9 Activity, unspecified; Y92.9 Unspecified place or not applicable; E11.22 Type 2 diabetes mellitus with diabetic chronic kidney disease; I12.0 Hypertensive chronic kidney disease with stage 5 chronic kidney disease or end stage renal disease; N18.6 End stage renal disease; Z99.2 Dependence on renal dialysis; I48.91 Unspecified atrial fibrillation; F03.90 Unspecified dementia, unspecified severity, without behavioral disturbance, psychotic disturbance, mood disturbance, and anxiety; Z79.01 Long term (current) use of anticoagulants; Z95.1 Presence of aortocoronary bypass graft; Z95.818 Presence of other cardiac implants and grafts
CPT/HCPCS: 36415; 70450; 72125; 80048; 85025; 87040; 99284; G0390